=== PATIENT | female | born 1990 | race Caucasian/White ===

== ENCOUNTER 2018-02-01 12:45 | Emergency (ER) | payer MEDICAID ==
[~2018-02-01] VITALS: Ht 165.1 cm; Wt 77.0 kg
[~2018-02-01 12:45] MED LIST: CLON-527 PO; IBUP-1984 PO
[2018-02-01 12:55] VITALS: BP 106/69
== END 2018-02-01 13:16 | disposition home or self-care (01) ==
LOC: ER 12:46
DX: B35.3 Tinea pedis (principal); F15.10 Other stimulant abuse, uncomplicated; F12.10 Cannabis abuse, uncomplicated
CPT/HCPCS: 99284

== ENCOUNTER 2018-02-12 19:26 | Emergency (ER) | payer MEDICAID ==
[~2018-02-12] VITALS: Ht 165.1 cm; Wt 81.8 kg
[2018-02-12 19:30] VITALS: BP 111/65
== END 2018-02-12 21:44 | disposition left against medical advice (07) ==
LOC: ER 19:27
DX: K08.89 Other specified disorders of teeth and supporting structures (principal); Z53.21 Procedure and treatment not carried out due to patient leaving prior to being seen by health care provider

== ENCOUNTER 2018-10-03 05:14 | Emergency (ER) | payer MEDICAID ==
[~2018-10-03] VITALS: Ht 165.1 cm; Wt 69.3 kg
[~2018-10-03 05:14] MED LIST changes: +IBUP-1986 PO
[2018-10-03 05:22] VITALS: BP 98/62
[2018-10-03] MEDS ORDERED: ibuprofen tablet 400 MG TABLET PO ONE (05:25)
== END 2018-10-03 05:36 | disposition home or self-care (01) ==
LOC: ER 05:15
DX: F23 Brief psychotic disorder (principal); R51 Headache; F31.9 Bipolar disorder, unspecified; F12.90 Cannabis use, unspecified, uncomplicated; F15.90 Other stimulant use, unspecified, uncomplicated; F17.200 Nicotine dependence, unspecified, uncomplicated; Z76.0 Encounter for issue of repeat prescription
CPT/HCPCS: 99282

== ENCOUNTER 2018-10-21 18:27 | Emergency (ER) | payer MEDICAID | END 2018-10-21 19:35 | disposition left against medical advice (07) | LOC: ER 18:27 | DX: Z00.8 Encounter for other general examination (principal); Z53.21 Procedure and treatment not carried out due to patient leaving prior to being seen by health care provider ==

== ENCOUNTER 2018-11-17 13:06 | Emergency (ER) | payer MEDICAID ==
[~2018-11-17] VITALS: Ht 165.1 cm; Wt 69.3 kg
[2018-11-17] MEDS ORDERED: diphenhydrAMINE 50 mg/ml inj IM ONE (14:05)
[2018-11-17] MEDS ORDERED: haloperidol lactate 5mg/ml inj IM ONE (14:05)
[2018-11-17] MEDS ORDERED: LORazepam 1 MG tablet PO ONE (14:05)
[2018-11-17] MEDS ORDERED: LORazepam 2 mg/ml vial IM ONE ×2 (14:10→15:35)
[2018-11-17 14:44] LABS: BASOPHILS # (AUTO) 0.1 X10'3 (0-0.2); BASOPHILS % (AUTO) 0.5 % (0-1); EOSINOPHILS # (AUTO) 0.5 X10'3 (0-0.9); EOSINOPHILS % (AUTO) 3.6 % (0-6); HEMATOCRIT 40.3 % (35.0-45.0); HEMOGLOBIN 13.6 g/dl (12.0-16.0); LYMPHOCYTES # (AUTO) 3.4 X10'3 (1.1-4.8); LYMPHOCYTES % (AUTO) 25.4 % (21-51); MEAN CORPUSCULAR HEMOGLOBIN 31.5 PG (27.0-31.0); MEAN CORPUSCULAR HGB CONC 33.8 % (33.0-36.5); MEAN CORPUSCULAR VOLUME 93.1 FL (78-98); MEAN PLATELET VOLUME 7.8 FL (7.4-10.4); MONOCYTES # (AUTO) 1.1 X10'3 (0-0.9); MONOCYTES % (AUTO) 8.3 % (2-12); NEUTROPHILS # (AUTO) 8.4 X10'3 (1.8-7.7); NEUTROPHILS % (AUTO) 62.2 % (42-75); PLATELET COUNT 368 X10'3 (140-440); RED BLOOD COUNT 4.33 X10'6 (4.20-5.60); RED CELL DISTRIBUTION WIDTH 12.8 % (11.5-14.5); WHITE BLOOD COUNT 13.5 X10'3 (4.5-11.0)
[2018-11-17 15:03] LABS: ALANINE AMINOTRANSFERASE 24 U/L (12-78); ALBUMIN 3.6 G/DL (3.4-5.0); ALKALINE PHOSPHATASE 93 IU/L (46-116); ANION GAP 12 (8-16); ASPARTATE AMINO TRANSFERASE 14 U/L (10-37); BILIRUBIN,TOTAL 0.3 MG/DL (0.1-1.0); BLOOD UREA NITROGEN 11 MG/DL (7-18); BUN/CREATININE RATIO 14.7 (6.6-38.0); CALCIUM 8.9 MG/DL (8.5-10.1); CHLORIDE 102 MMOL/L (99-107); CREATININE 0.75 MG/DL (0.40-0.90); ETHANOL < 0.010 GM/DL (0.0-0.010); GLUCOSE 83 MG/DL (70-104); POTASSIUM 4.3 MMOL/L (3.5-5.1); SODIUM 141 MMOL/L (135-145); TOTAL CARBON DIOXIDE 27.4 MMOL/L (24-32); TOTAL PROTEIN 7.2 G/DL (6.4-8.2); eGFR > 90 ML/MIN
[2018-11-17] MEDS ORDERED: nicotine 21mg patch - 24 hr TD ONE (15:35)
[2018-11-17 15:53] LABS: CLARITY,URINE CLEAR (Clear); COLOR,URINE YELLOW (Yellow); GLUCOSE, URINE NEGATIVE (Neg); KETONES,URINE NEGATIVE (Neg); LEUKOCYTE ESTERASE ,URINE NEGATIVE (Neg); NITRITES, URINE NEGATIVE (Neg); OCCULT BLOOD,URINE NEGATIVE (Neg); PROTEIN,URINE NEGATIVE (Neg); URINE HCG NEGATIVE (NEG); UROBILINOGEN,URINE 0.2 E.U/dL (0.2-1.0)
[2018-11-17 15:56] LABS: UA COLLECTION TYPE CLN CATCH MIDSTREAM
[2018-11-17 15:59] LABS: URINE AMPHETAMINE SCREEN POSITIVE (Neg); URINE BARBITUATE SCREEN NEGATIVE (Neg); URINE BENZODIAZEPINES SCREEN NEGATIVE (Neg); URINE CANNABINOID SCREEN POSITIVE (Neg); URINE COCAINE SCREEN NEGATIVE (Neg); URINE METHADONE SCREEN NEGATIVE (Neg); URINE OPIATE SCREEN NEGATIVE (Neg); URINE PHENCYCLIDINE SCREEN NEGATIVE (Neg)
--- NOTE | 2018-11-17 16:05 | NUR ---
patient arrived to unit at 1315. patient being rude to staff, saying things that are very sexual in nature, very inappropriate. B52 given per md order. pt did not calm down much. Became angry that she didnot get caffinated tea and began pacing around bed yelling and crying like a child. ordered 2mg ativan around 1545 which was given. Patient now resting comfortably, not disrupting unit like before.
--- NOTE | 2018-11-17 17:04 | NUR ---
pt sleeping, even rise and fall of chest
--- NOTE | 2018-11-17 18:49 | NUR ---
Resting in bed, soundly, with eyes closed, appearing to sleep, resp are even and unlabored, no new concerns noted at this time, will continue to monitor.
[2018-11-17] MEDS ORDERED: OLAN5TAB3 PO (19:44)
[2018-11-17] MEDS ORDERED: ALPR-624 (19:44)
--- NOTE | 2018-11-17 19:48 | NUR ---
Resting soundly in bed with eyes closed, appearing to sleep with resp even and unlabored. No new concerns or issues noted at this time. Will continue to monitor for changes.
--- NOTE | 2018-11-17 20:03 | NUR ---
Med Rec printed and faxed to pharmacy
--- NOTE | 2018-11-17 20:22 | NUR ---
Resting in bed, eyes closed, appearing to sleep soundly.
--- NOTE | 2018-11-17 20:37 | NUR ---
spoke with pharmacy regarding med rec. Will have AM follow up with this as there is no information regarding dosage or freq, and doubt regarding rather or not patient actually takes these medications at home.
--- NOTE | 2018-11-17 21:00 | NUR ---
Resting in bed, eyes closed, appearing to sleep soundly. Occasionaly stirs and changes positions. Will continue to monitor.
--- NOTE | 2018-11-17 21:26 | NUR ---
packet faxed to [facility] and provided to GOLDEN Wallace
--- NOTE | 2018-11-17 22:06 | NUR ---
Awakes brielfy to reposition and then abck to resting with eyes closed and appearing to sleep. Will continue to monitor.
--- NOTE | 2018-11-17 22:42 | NUR ---
Freq moving in the bed, restless at times, though eyes are closed and appearing to sleep. Will continue to monitor.
--- NOTE | 2018-11-17 23:15 | NUR ---
Resting in bed with eyes closed, appearing to sleep at this time. Resp are even and unlabored. Will continue to monitor.
--- NOTE | 2018-11-18 00:24 | NUR ---
Resting in bed with eyes closed, appearing to sleep at this time. Resp are even and unlabored. Will continue to monitor.
--- NOTE | 2018-11-18 01:17 | NUR ---
Resting in bed with eyes closed, appearing to sleep at this time. Resp are even and unlabored. Will continue to monitor.
--- NOTE | 2018-11-18 02:26 | NUR ---
Resting in bed with eyes closed, appearing to sleep at this time. Resp are even and unlabored. Will continue to monitor.
--- NOTE | 2018-11-18 03:09 | NUR ---
Resting in bed, appearing to sleep. Self repositions in bed. Occasioanly cough and restlessness noted. No obvious new concerns noted. Will continue to monitor for changes.
--- NOTE | 2018-11-18 04:10 | NUR ---
Resting in bed with eyes closed, appearing to sleep at this time. Resp are even and unlabored. Will continue to monitor.
--- NOTE | 2018-11-18 05:30 | NUR ---
Resting in bed with eyes closed, appearing to sleep at this time. Resp are even and unlabored. Will continue to monitor.
[2018-11-18 05:44] VITALS: BP 107/65
[2018-11-18] MEDS ORDERED: diphenhydrAMINE 50 mg/ml inj IM ONE (10:45)
[2018-11-18] MEDS ORDERED: LORazepam 2 mg/ml vial IM ONE (10:45)
[2018-11-18] MEDS ORDERED: haloperidol lactate 5mg/ml inj IM ONE (10:45)
[2018-11-18] MEDS ORDERED: nicotine 21mg patch - 24 hr TD ONE (10:45)
[2018-11-18] MEDS ORDERED: OLAN5TAB26 PO (10:55)
[2018-11-18] MEDS ORDERED: ALPR0.5T8 PO (10:55)
[2018-11-18] MEDS ORDERED: ALPRAZolam 0.5mg tablet PO PRN (10:55)
[2018-11-18] MEDS ORDERED: OLANZapine 5mg rapidly disint. tablet PO SCH (11:00)
--- NOTE | 2018-11-18 11:10 | NUR ---
PT ASKED RN IF SHE COULD HAVE COFFEE WITH CAFFEINE. RN EXPLAINED ONLY DECAF IS AVAIABLE. PT STARTING YELLING AND CUSSING AT RN THAT THERE IS COFFEE WITH CAFFEINE AND SHE CAN HAVE IT. OTHER STAFF CAME TO SEE WHAT WAS GOING ON WITH PT AND SECURITY CALLED. PT TOLD NO CAFFIENE BY TECH AND CALMED DOWN. PT REQUESTING NICOTINE PATCH. PT CALMED DOWN NOW AND IS SLEEPING.
--- NOTE | 2018-11-18 12:36 | NUR ---
behavior health speaking with pt about being admitted to their unit. pt agrees with that.
--- NOTE | 2018-11-18 15:32 | NUR ---
PT BEING TRANSFERRED TO BEHAVIORAL HEALTH NOW. PT W/C WITH [facility] UPSTAIRS IN STABLE CONDITION.
== END 2018-11-18 16:14 | disposition short-term general hospital (02) ==
LOC: ER 13:07
DX: F15.159 Other stimulant abuse with stimulant-induced psychotic disorder, unspecified (principal); F31.9 Bipolar disorder, unspecified; F20.9 Schizophrenia, unspecified; F17.210 Nicotine dependence, cigarettes, uncomplicated; F12.90 Cannabis use, unspecified, uncomplicated; Z79.899 Other long term (current) drug therapy
CPT/HCPCS: 36415; 80053; 80305; 80320; 81003; 81025; 85025; 96372; 99285; J1200; J1630; J2060

== ENCOUNTER 2018-11-18 14:30 | Inpatient (IN) | payer MEDICAID | END 2018-12-28 16:15 | disposition still patient (30) | LOC: ADULT MH 14:30 | DX: F15.129 Other stimulant abuse with intoxication, unspecified (principal); F12.90 Cannabis use, unspecified, uncomplicated ==